=== PATIENT | female | born 1990 | race Caucasian/White ===

== ENCOUNTER → 2019-12-09 11:48 | Outpatient (CLI) | payer BC, SELFPAY ==
[2019-12-09 12:43] LABS: Basophils % 0.1 % (0.1-2.0); Eosinophils # 0.1 K/mm3 (0.0-0.4); Eosinophils % 1.2 % (0.1-12.0); Hematocrit 37.9 % (37.0-47.0); Hemoglobin 13.4 g/dL (12.2-16.2); Lymphocytes # 2.4 K/mm3 (0.7-4.5); Lymphocytes % 19.8 % (10-50); Mean Corpuscular HGB Conc 35.5 g/dL (31.8-35.4); Mean Corpuscular Volume 87.4 fl (81-99); Mean Platelet Volume 7.3 fl (7.4-10.4); Monocytes # 0.5 K/mm3 (0.1-1.0); Monocytes % 4.1 % (1.7-9.3); Neutrophils # 8.9 K/mm3 (1.8-7.8); Neutrophils % 74.7 % (37.0-80.0); Platelet Count 257 K/mm3 (142-424); Red Blood Count 4.33 M/mm3 (4.20-5.40); Red Cell Distribution Width 13.1 % (11.5-17.5); White Blood Count 11.8 K/mm3 (4.8-10.8)
[2019-12-09 13:50] LABS: Coronavirus 19 IgG Antibody Negative (Negative); Coronavirus 19 IgM Antibody Negative (Negative)
== END ==
PROVIDERS: PCP Family Medicine; Visit Provider Family Medicine
DX: Z01.84 Encounter for antibody response examination (principal); J06.9 Acute upper respiratory infection, unspecified
CPT/HCPCS: 36415; 85025; 86328

== ENCOUNTER 2020-09-17 02:35 | Emergency (ER) | payer BC, SELFPAY ==
[2020-09-17 02:37] VITALS: BP 135/95; PULSE 102; RESP 20; TEMP 36.8; O2SAT 98; BMI 27.4
[2020-09-17 03:03] VITALS: BMI 27.4
[2020-09-17 03:22] LABS: Basophils # 0.1 K/mm3 (0-0.2); Basophils % 0.5 % (0.1-2.0); Eosinophils # 0.1 K/mm3 (0.0-0.4); Eosinophils % 0.6 % (0.1-12.0); Hematocrit 43.7 % (37.0-47.0); Hemoglobin 14.2 g/dL (12.2-16.2); Lymphocytes # 3.4 K/mm3 (0.7-4.5); Lymphocytes % 34.6 % (10-50); Mean Corpuscular HGB Conc 32.4 g/dL (31.8-35.4); Mean Corpuscular Hemoglobin 27.7 pg (27.0-31.2); Mean Corpuscular Volume 85.5 fl (81-99); Mean Platelet Volume 7.5 fl (7.4-10.4); Monocytes # 0.7 K/mm3 (0.1-1.0); Monocytes % 6.8 % (1.7-9.3); Neutrophils # 5.7 K/mm3 (1.8-7.8); Neutrophils % 57.4 % (37.0-80.0); Platelet Count 307 K/mm3 (142-424); Red Blood Count 5.11 M/mm3 (4.20-5.40); Red Cell Distribution Width 14.2 % (11.5-17.5); White Blood Count 9.9 K/mm3 (4.8-10.8)
[2020-09-17 03:28] LABS: Alanine Aminotransferase 69 U/L (12-78); Albumin Level 4.8 g/dl (3.5-5.0); Albumin/Globulin Ratio 1.4 (1.1-1.8); Alkaline Phosphatase 125 U/L (38-126); Anion Gap 12.8 mEq/L (5-15); Aspartate Amino Transferase 56 U/L (14-36); Bilirubin,Total 0.2 mg/dl (0.2-1.3); Blood Urea Nitrogen 12 mg/dl (7-17); Calcium 10.1 mg/dl (8.4-10.2); Carbon Dioxide 26 mmol/L (22.0-30.0); Chloride 103 mmol/L (98-107); Creatinine Clearance Estimated 139 mL/min (50-200); Estimated Glomerular Filt Rate 98 ml/min (>60); GFR (African American) 119 ML/MIN (>60); Globulin 3.5 g/dL (1.3-3.2); Glucose 107 mg/dl (74-100); Potassium 3.8 mmoL/L (3.5-5.1); Sodium 138 mmol/L (136-145); Total Protein,Serum 8.3 g/dl (6.3-8.2)
[2020-09-17 03:33] LABS: C-Reactive Protein 7.9 mg/L (0-4)
[2020-09-17 03:44] LABS: Procalcitonin 0.044 ng/mL (0.0-2.0)
[2020-09-17 04:05] LABS: Erythrocyte Sedimentation Rate 22 mm/hr (0-20)
--- NOTE | 2020-09-17 04:51 | HMH.EDGENADL ---
ED Disposition Clinical Impression: Mastitis in female Disposition: Home, Self-Care Condition on Discharge: Good Instructions: DI for Mastitis Additional Instructions: use meds and continue and call pcp for follow up Prescriptions: cephALEXin [cephALEXin 500mg capsule*] 500 mg PO TID #30 cap Prescription Printed Referrals: Matuesz Fletcher MD [Primary Care Provider] - - Critical Care Critical Care Time: No Attestation: On 09/17/20, the high probability of a clinically significant, sudden or life threatening deterioration of the following system(s) required my full and direct attention, intervention and personal management. The time I documented below is in addition to time spent performing reported procedures but includes the following listed in this critical care notation. Medical Decision Making - Medical Records Medical records reviewed: Yes: I reviewed the patient's medical records. - Cristhian Inquiry Pt receiving controlled substance: No Vital Signs: 09/17/20 02:37 Temperature 98.3 F Temperature Source Oral Pulse Rate [Right Brachial] 102 H Respiratory Rate 20 Blood Pressure [Right ARM] 135/95 H Blood Pressure Mean [Right ARM] 108 Blood Pressure Source [Right ARM] Automatic Cuff 02 Sat by Pulse Oximetry 98 Oxygen Delivery Method Room Air - Lab Data Lab results reviewed: Yes: I reviewed the patient's lab results. Lab Results 09/17/20 03:00: WBC 9.9, RBC 5.11, Hgb 14.2, Hct 43.7, MCV 85.5, MCH 27.7, MCHC 32.4, RDW 14.2, Plt Count 307, MPV 7.5, Neut % (Auto) 57.4, Lymph % (Auto) 34.6, [place] % (Auto) 6.8, Eos % (Auto) 0.6, Baso % (Auto) 0.5, Neut # (Auto) 5.7, Lymph # (Auto) 3.4, [place] # (Auto) 0.7, Eos # (Auto) 0.1, Baso # (Auto) 0.1, ESR 22 H 09/17/20 03:00: Sodium 138, Potassium 3.8, Chloride 103, Carbon Dioxide 26, Anion Gap 12.8, BUN 12, Creatinine 0.70, Estimated Creat Clear 139, Estimated GFR 98, Est GFR ( Amer) 119, Glucose 107 H, Calcium 10.1, Total Bilirubin 0.2, AST 56 H, ALT 69, Alkaline Phosphatase 125, C-Reactive Protein 7.9 H, Total Protein 8.3 H, Albumin 4.8, Globulin 3.5 H, Albumin/Globulin Ratio 1.4, Procalcitonin 0.044 Result diagrams: 09/17/20 03:00 09/17/20 03:00 Medical Decision Narrative: will encourage continued breast pumping and use abx General Adult HPI - General Chief complaint: PAIN Stated complaint: Bilateral Breast Pain, Hot and hurts to touch Time Seen by Provider: 09/17/20 03:00 Mode of Arrival: Ambulatory Source of Information: Patient, Medical Record Limitations: No Limitations Description of Symptoms (Recalled from ER Triage Doc. by RN): Pt is 4months and c/o chills, fever, body aches, and has painful breasts. Pt reports she believes she had mastitis before and this is what it feels like now. Pt states she works at [employer] and is unable to take more than a 10 min break to pump. Pt took Tylenol 1gram about 1 hr ago (0130) d/t pain and temp of 100.1 at work. - History of Present Illness HPI narrative: chills and fever with bilat breast tenderness with hx of breast feeding - Onset (ago): day(s) Severity: moderate Associated symptoms: fever/chills Treatments prior to arrival: none - Related Data Previous Rx's Medication Instructions Recorded cephALEXin [cephALEXin 500mg 500 mg PO TID #30 cap 09/17/20 capsule*] Allergies Allergy/AdvReac Type Severity Reaction Status Date / Time No Known Allergies Allergy Verified 11/05/18 21:10 [facility] History - Hepatitis A Screen Drug use history?: No High risk sexual behaviors?: No History of sexually transmitted infection?: No Currently employed?: No Childcare worker?: No Do you have indoor plumbing?: Yes Do you have electricity?: Yes Attestation statement:: This patient has been screened for Hepatitis A risk factors. I have reviewed the patient's past medical history: Yes Medical History: Denies:: Cancer, Diabetes Mellitus Type 1, Diabetes Mellitus Type 2,
[2020-09-17 05:52] VITALS: BP 130/89; PULSE 99; RESP 16; TEMP 36.6; O2SAT 99
[2020-09-17 06:13] VITALS: BP 130/89; PULSE 99; RESP 20; O2SAT 99
== END 2020-09-17 05:55 | disposition home or self-care (01) ==
PROVIDERS: Emergency Provider Emergency Medicine; PCP Family Medicine
DX: N61.0 Mastitis without abscess (principal)
CPT/HCPCS: 80053; 84145; 85025; 85651; 86140; 99282

== ENCOUNTER 2020-10-04 15:24 | Emergency (ER) | payer BC, SELFPAY ==
[2020-10-04 15:34] VITALS: BP 147/98; PULSE 127; RESP 20; TEMP 36.6; O2SAT 96; BMI 27.4
--- NOTE | 2020-10-04 15:49 | HMH.EDUTC ---
[facility] [place] Disposition Clinical Impression: Viral syndrome, Exposure to COVID-19 virus Disposition: Home, Self-Care Condition on Discharge: Good Instructions: Preventing the Spread of Coronavirus Discharge Instructions Additional Instructions: Drink plenty of fluids. Take tylenol for pain or fever. Return if you begin to have difficulty breathing. Follow up with your regular doctor. GO TO THE ER FOR ANY WORSENING SYMPTOMS Referrals: Karine Luna PA [Primary Care Provider] - Forms: Work/School Release Time of Disposition: 15:51 Medical Decision Making - Medical Records Medical records reviewed: No: I reviewed the patient's medical records. - Cristhian Inquiry Pt receiving controlled substance: No Vital Signs: 10/04/20 15:34 10/04/20 16:02 Temperature 97.9 F 98 F Temperature Source Tympanic Pulse Rate 68 Pulse Rate [Right] 127 H Respiratory Rate 20 18 Blood Pressure 139/87 Blood Pressure [Right Arm] 147/98 H Blood Pressure Mean [Right Arm] 114 Blood Pressure Source [Right Arm] Automatic Cuff Blood Pressure Position [Right Arm] Sitting 02 Sat by Pulse Oximetry 96 [facility] [place] HPI - General Stated complaint: covid test Time Seen by Provider: 10/04/20 15:49 Mode of Arrival: Ambulatory Source of Information: Patient Limitations: No Limitations Description of Symptoms (Recalled from Triage Doc. by RN): pt c/o congestion, cough and fever. pt was exposed last wed to covid positive pt. HEENT Symptoms (Recalled from RN notes): Yes (sinus congestion) Resp Symptoms (Recalled from RN notes): Yes (cough) Skin Symptoms (Recalled from RN notes): No MS Symptoms (Recalled from RN notes): No Functional Status (Recalled from RN notes): na - History of Present Illness Provider Complaint: She states that for the past 2 days she has had chest congestion, sinus congestion, cough and low grade fever. She was exposed to covid-19 last week. She needs a covid test for her job before she can work. - Related Data Previous Rx's Medication Instructions Recorded cephALEXin [cephALEXin 500mg 500 mg PO TID #30 cap 09/17/20 capsule*] Allergies Allergy/AdvReac Type Severity Reaction Status Date / Time No Known Allergies Allergy Verified 11/05/18 21:10 - Worker's Comp Is this a Worker's Comp case?: No [facility] History - Hepatitis A Screen Drug use history?: No High risk sexual behaviors?: No History of sexually transmitted infection?: No Currently employed?: No Childcare worker?: No Do you have indoor plumbing?: Yes Do you have electricity?: Yes Attestation statement:: This patient has been screened for Hepatitis A risk factors. I have reviewed the patient's past medical history: Yes Medical History: Denies:: Cancer, Diabetes Mellitus Type 1, Diabetes Mellitus Type 2, MRSA Comment: small hole in heart Laterality Cases: Bilateral: Tonsillectomy Amputation: No - Social History Smoking Status: Unknown if ever smoked Alcohol Intake: never Occupational Status: employed Housing: house Family Hx:: Asthma, Heart Attack, Diabetes ROS Obtained: Yes All systems reviewed & no additional complaints - Constitutional Constitutional: Reports system reviewed and no additional complaints, except as docu - Eyes Eyes: Reports system reviewed and no additional complaints, except as docu - ENT Ears, Nose, Mouth, and Throat: Reports system reviewed and no additional complaints, except as docu - Cardiovascular Cardiovascular: Reports system reviewed and no additional complaints, except as docu - Respiratory Respiratory: Reports system reviewed and no additional complaints, except as docu - Gastrointestinal Gastrointestingal: Reports: system reviewed and no additional complaints, except as docu Physical Exam - General General appearance: alert, in no apparent distress - Head Head exam: atraumatic, normocephalic, normal inspection - Eye Eye exam: Present: normal appearance, PERRL, EOMI
[2020-10-04 16:02] VITALS: BP 139/87; PULSE 68; RESP 18; TEMP 36.6
== END 2020-10-04 16:03 | disposition home or self-care (01) ==
PROVIDERS: Emergency Provider Nurse Practitioner Family; PCP Physician Assistant
DX: Z20.822 Contact with and (suspected) exposure to COVID-19 (principal); B34.9 Viral infection, unspecified
CPT/HCPCS: 99202; G0463; U0003

== ENCOUNTER → 2020-11-03 11:53 | Outpatient (CLI) | payer BC, SELFPAY ==
[2020-11-03 13:11] LABS: Basophils % 0.5 % (0.1-2.0); Eosinophils # 0.2 K/mm3 (0.0-0.4); Eosinophils % 1.5 % (0.1-12.0); Hematocrit 44.1 % (37.0-47.0); Hemoglobin 14.9 g/dL (12.2-16.2); Lymphocytes # 2.5 K/mm3 (0.7-4.5); Mean Corpuscular HGB Conc 33.8 g/dL (31.8-35.4); Mean Corpuscular Hemoglobin 28.9 pg (27.0-31.2); Mean Corpuscular Volume 85.6 fl (81-99); Mean Platelet Volume 7.7 fl (7.4-10.4); Monocytes # 0.6 K/mm3 (0.1-1.0); Monocytes % 6.5 % (1.7-9.3); Neutrophils # 6.6 K/mm3 (1.8-7.8); Neutrophils % 66.6 % (37.0-80.0); Platelet Count 300 K/mm3 (142-424); Red Blood Count 5.16 M/mm3 (4.20-5.40); Red Cell Distribution Width 13.3 % (11.5-17.5); White Blood Count 9.9 K/mm3 (4.8-10.8)
== END ==
PROVIDERS: PCP Physician Assistant; Visit Provider Physician Assistant
DX: Z20.822 Contact with and (suspected) exposure to COVID-19 (principal)
CPT/HCPCS: 36415; 85025; U0003

== ENCOUNTER → 2021-09-07 11:48 | Outpatient (CLI) | payer OTHER, SELFPAY | PROVIDERS: PCP Physician Assistant; Visit Provider Physician Assistant | DX: R00.0 Tachycardia, unspecified (principal) | CPT/HCPCS: 93225; 93226 ==

== ENCOUNTER → 2021-09-14 11:08 | Outpatient (CLI) | payer OTHER, SELFPAY ==
--- NOTE | 2021-09-14 11:22 | XR_ITS ---
FINAL REPORT CLINICAL HISTORY: COVID TESTING, rapid heart rate, elevated BP FINDINGS: A single portable view of the chest was obtained. The heart size and pulmonary vascularity are within normal limits. The mediastinum is within normal limits. No acute pulmonary abnormality is identified. The bony thorax is intact. IMPRESSION: No active cardiopulmonary disease. Reviewed, Interpreted and Dictated by Hardy Kim III, MD Transcribed by Cameron Castrejon Authenticated by Hardy Kim III, MD on 09/14/2021 12:23:55 PM [facility]
--- NOTE | 2021-09-14 11:29 | ECG_ITS ---
APPROVED REPORT Exam: Resting ECG HR:90 bpm ECG Measurements Heart Rate 90 AXES MI 165 P 62 QRSd 87 QRS 82 QT 367 T 48 QTc 415 Conclusion SINUS RHYTHM WITH SINUS ARRHYTHMIA NORMAL ECG UNCONFIRMED REPORT Electronically signed by : Barrera Nielsen MD 09/14/2021 18:02:14
[2021-09-14 11:32] LABS: Adenovirus,PCR Not Detected (NotDetected); Bordetella Pertussis Not Detected (NotDetected); Chlamydophila Pneumoniae, PCR Not Detected (NotDetected); Coronavirus 229E Not Detected (NotDetected); Coronavirus NL63 Not Detected (NotDetected); Coronavirus OC43 Not Detected (NotDetected); Coronovirus HKU1,PCR Not Detected (NotDetected); Human Metapneumovirus Not Detected (NotDetected); Influenza A, PCR Not Detected (NotDetected); Influenza AH1, 2009 Not Detected (NotDetected); Influenza AH1, PCR Not Detected (NotDetected); Influenza AH3,PCR Not Detected (NotDetected); Influenza B, PCR Not Detected (NotDetected); Mycoplasma Pneumoniae, PCR Not Detected (NotDetected); Parainfluenza 1, PCR Not Detected (NotDetected); Parainfluenza 2, PCR Not Detected (NotDetected); Parainfluenza 3, PCR Not Detected (NotDetected); Parainfluenza 4, PCR Not Detected (NotDetected); Respiratory Syncytial Virus Not Detected (NotDetected); Rhinovirus/Enterovirus Not Detected (NotDetected)
[2021-09-14 12:28] LABS: Alanine Aminotransferase 53 U/L (12-78); Albumin Level 4.3 g/dl (3.5-5.0); Albumin/Globulin Ratio 1.6 (1.1-1.8); Alkaline Phosphatase 81 U/L (38-126); Anion Gap 10.8 mEq/L (5-15); Aspartate Amino Transferase 51 U/L (14-36); Bilirubin,Total 0.4 mg/dl (0.2-1.3); Blood Urea Nitrogen 10 mg/dl (7-17); Calcium 8.8 mg/dl (8.4-10.2); Carbon Dioxide 27 mmol/L (22.0-30.0); Chloride 105 mmol/L (98-107); Creatine Kinase 67 U/L (30-135); Estimated Glomerular Filt Rate 117 ml/min (>60); GFR (African American) 141 ML/MIN (>60); Globulin 2.7 g/dL (1.3-3.2); Glucose 132 mg/dl (74-100); Potassium 3.8 mmoL/L (3.5-5.1); Sodium 139 mmol/L (136-145)
[2021-09-14 12:39] LABS: CKMB Relative Index 0.9 U/L (0-4.0); Creatine Kinase MB 0.6 ng/ml (0.0-2.03)
[2021-09-14 12:42] LABS: Troponin I < 0.01 ng/ml (0.00-0.034)
[2021-09-14 12:49] LABS: Basophils # 0.1 K/mm3 (0-0.2); Basophils % 1.2 % (0.1-2.0); Eosinophils # 0.1 K/mm3 (0.0-0.4); Eosinophils % 0.9 % (0.1-12.0); Hemoglobin 15.1 g/dL (12.2-16.2); Lymphocytes # 2.1 K/mm3 (0.7-4.5); Lymphocytes % 37.8 % (10-50); Mean Corpuscular HGB Conc 32.1 g/dL (31.8-35.4); Mean Corpuscular Hemoglobin 28.6 pg (27.0-31.2); Mean Corpuscular Volume 89.1 fl (81-99); Mean Platelet Volume 8.6 fl (7.4-10.4); Monocytes # 0.6 K/mm3 (0.1-1.0); Monocytes % 10.8 % (1.7-9.3); Neutrophils # 2.7 K/mm3 (1.8-7.8); Neutrophils % 49.4 % (37.0-80.0); Platelet Count 324 K/mm3 (142-424); Red Blood Count 5.27 M/mm3 (4.20-5.40); Red Cell Distribution Width 13.3 % (11.5-17.5); White Blood Count 5.5 K/mm3 (4.8-10.8)
[2021-09-15 00:14] LABS: Coronavirus 19, PCR Detected (NotDetected)
== END ==
PROVIDERS: PCP Physician Assistant; Visit Provider Physician Assistant
DX: U07.1 COVID-19 (principal)
CPT/HCPCS: 36415; 71045; 80053; 82550; 82553; 84484; 85025; 87581; 87632; 87798; 93005; C9803; U0003; U0005

== ENCOUNTER → 2021-09-22 08:02 | Outpatient (CLI) | payer OTHER, SELFPAY ==
--- NOTE | 2021-09-22 08:10 | CA_ITS ---
APPROVED REPORT EXAM: Comprehensive 2D, Doppler, and color-flow Echocardiogram Email Marketing Executive: Gail Ashford CRT Ht: 5 ft 5 in Wt: 185lbs BSA: 1.91 BP: 138/87 mmHg Indications: Chest Pain, Shortness of Breath, Diabetes, Palpitations, Hyperlipidemia, Hypertension/HDD Pt states small hole in her heart per old Echo 2013 B/S Echo Enhancing Agent Indication: Rule Out Septal Defect Agent(s) / Amount(s) Used: Agitated Saline 5 cc Comments: B/S appears positive for shunt. 2D Dimensions LVOT 1.86 cm (M/F) 1.5-2.5 LA Volume 20.60 mL LA Volume Index 10.80 mL/m2 (M/F) 16-34 M-Mode Dimensions RVDd 2.75 cm (0.9-2.6) LA Diam 2.69 cm (1.9-4.0) LVDd 4.13 cm (3.5-5.7) Ao Diam 3.40 cm (2.0-3.7) LVDs 2.53 cm (3.5-5.7) IVSd 1.22 cm (0.6-1.1) PWd 0.78 cm (0.6-1.1) EF (Teich) 69.50% FS 38.70% EDV (Teich) 75.50 mL TAPSE 1.90 (<1.7) ESV (Teich) 23.00 mL LV Diastology E Decel Time 140.00 (160-240 msec) E/A Ratio 1.17 MED E' 7.70 (< 7 cm/sec) MED A' 10.70 cm/s E'/MED E' Ratio 8.74 (>14) LAT E' 8.00 (<10 cm/sec) LAT A' 6.20 cm/s E/LAT E' Ratio 8.41 (>14) Aortic Valve AO Peak GR. 5.90 mmHg Mitral Valve MV A Velocity 57.00 (40-130 cm/s) E/A Ratio 1.17 MV Decel. Time 140.00 (160-240 ms) Pulmonary Valve PV Peak Velocity 86.00 (50-150 cm/s) Tricuspid Valve TR P. Velocity 191.00 cm/s RAP Estimate 10.00 mmHg RVSP 24.50 mmHg Left Ventricle Left atrium normal size, left ventricle is normal size, there is no concentric left ventricular hypertrophy, visually estimated ejection fraction 55% with no regional wall motion abnormality, diastolic parameters are within normal range. Right Ventricle Right atrium and right ventricle are normal size and contractility. Atria Intra-atrial septum is intact, agitated saline contrast study identifies likely small patent foramen ovale. Aortic Valve Aortic valve is grossly normal, there is no aortic stenosis or aortic insufficiency. Mitral Valve Mitral valve grossly normal, there is trace mitral regurgitation. Tricuspid Valve Tricuspid grossly normal, there is trace tricuspid regurgitation, tricuspid regurgitation jet velocity is inadequate for calculation of the right ventricular systolic pressure. Pulmonic Valve Pulmonic valve is poorly visualized. Great Vessels Aortic root is normal size. Inferior vena cava is poorly visualized. Pericardium No significant pericardial effusion noted. Conclusion 1. Normal left ventricular size, preserved left ventricular systolic function, visually estimated ejection fraction 55% with no regional wall motion abnormality, diastolic parameters are within normal range in the study. 2. Likely small patent foramen ovale with [id number] shunt. 3. Trace mitral and tricuspid regurgitation. 4. No significant pericardial effusion. 5. Inferior vena cava is poorly visualized. Electronically signed by : Arun Franco MD 09/23/2021 14:07:35
== END ==
PROVIDERS: PCP Physician Assistant; Visit Provider Physician Assistant
DX: R00.0 Tachycardia, unspecified (principal); I10 Essential (primary) hypertension
CPT/HCPCS: 93306

== ENCOUNTER 2025-06-23 15:39 | Outpatient (CLI) | payer OTHER, SELFPAY ==
--- OUTSIDE RECORDS SUMMARY | 2025-06-23 15:42 | XMS_ITS | Encounter Summary ---
[facility] Address [address] [place] [address] Care Team Providers Care Strand Buncher Fine Wire Name Role Phone Mateusz Fletcher MD Primary Care Provider + [phone] Reason for Visit * Reason Onset Date Comments Appointment 06/10/2025 Encounter Details Date Type Department Care Team (Late st Contact Info) Description 06/10/2025 Telephone [facility] [address] [phone] Yadira Collins MD [address] [place] [address] Appointment Social History Tobacco Use Types Packs/Day Years Used Date Smoking Tobacco: Former Cigarettes Smokeless Tobacco: Never Comments:social Alcohol Use Standard Drinks/Week Comments Not Currently 0 (1 standard drink = 0.6 oz pur e alcohol) AUDIT-C Answer Date Recorded Q1: How often do you have a drink containing alc ohol? Never 05/09/2020 Average Number of Drinks Not on file 020 Frequency of Binge Drinking Not on file 01/2020 Overall Financial Resource Strain (CARDIA) Answe r Date Recorded How hard is it for you to pa y for the very basics like food, housing, medical care, and heating? Not hard at all 04/10/2020 Hunger Vital Sign Answer Date Recorded Within the past 12 months, y ou worried that your food would run out before you got the money to buy more. Never true 04/10/20 20 Within the past 12 months, t he food you bought just didn't last and you didn't have money to get more. Never true 04/10/2020 PRAPARE - Transportation Answer Date Re corded In the past 12 months, has l ack of transportation kept you from medical appointments or from getting medications? No 04/01 In the past 12 months, has l ack of transportation kept you from meetings, work, or from getting things needed for daily living? No 04/10/2020 [place] Depression Scale Answer Date Recorded [place] Depression Scale Total 3 06/15/2020 The thought of harming myself has occurred to me . 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 Will send a [employer] message and remove from phone list due to multiple attempts. * Telephone Encounter - Lindy Gonzalez RN - 06/10/2025 3:24 PM EST Attempted to call patient again; voice mail box has not been set up . * Telephone Encounter - Lindy Gonzalez RN - 06/10/2025 1:06 PM EST Called patient back. States she has been visiting family in [place] and saw an OB there twice with cramping and nausea. States by ultrasound done there, she will be 8 weeks on 06/12/25. Call dropped again. Tried to call patient back; unable to leave a message. * Telephone Encounter - Lindy Gonzalez RN - 06/10/2025 12:59 PM EST Patient of Dr. Collins; KASSANDRA 01/17/2024. Returned patient's call. LMP 04/10/25 = 8w 5d Signal was lost; tried to call patient back, no answer and no voicemail set up. * Telephone Encounter - Mayte Christy RegSched Rep - 06/10/2025 12:10 PM EST Provider: Yadira Collins MD Caller: Mary Preciado Mary Ilana Female, 34 y.o., 1990 CSN: [id number] Reason for Call: PT REQ A CALL BACK TO [facility] OB APPT UNABLE TO WT THE CALL TO PRACTICE , LMP 04-10-25 documented in this encounter Plan of Treatment Upcoming Encounters Date Type Department Care Team (Late st Contact Info) Description 06/26/2025 9:00 AM EST Ancillary Procedure [facility] [id number] [phone] 06/26/2025 9:30 AM EST Initial [facility] [address] [facility] [address] [place] [phone] Eliz Cazares APRN [address] [place] [phone] 10/08/2025 8:00 AM EDT Office Visit [facility] [address] [facility] [address] [place] [phone] Yadira Collins MD [address] [facility] [address] [place] [address] documented as of this encounter Visit Diagnoses Not on filedocumented in this encounter Care Teams Str[employer] Relationship Specialty Start Date End Date Mateusz Fletcher MD [address] [facility] [address] [facility] [address] [place] [address] PCP - General Family Medicine 12/27/19 documented as of this encounter
--- OUTSIDE RECORDS SUMMARY | 2025-06-23 15:42 | XMS_ITS | Clinical Summary ---
Author Organization [facility] Address [address] [place] [address] Care Team Providers Care Risk Management Analyst Name Role Phone Mateusz Fletcher MD Primary Care Provider + [phone] Allergies No known active allergies Medications omeprazole (priLOSEC) 20 MG capsule Take 1 capsule by mouth Daily. 06/15/2022 Active montelukast (SINGULAIR) 10 MG tablet Take 1 tablet by mouth Daily. 05/18/2022 Active sertraline (ZOLOFT) 100 MG tablet Take 1 tablet by mouth Daily. 04/03/2023 Active Mounjaro 10 MG/0.5ML solution pen-injector pen 01/04/2024 Active methocarbamol (ROBAXIN) 500 MG tablet Take 1 tablet by mouth 3 (Three) Times a Day As Needed. Active meloxicam (MOBIC) 15 MG tablet Daily. 12/17/2024 Active Active Problems Problem Noted Date Diagnosed Date Bilateral carpal tunnel syndrome 04/03/2024 YVES (stress urinary incontinence, female) 2023 Overview (01/17/2024): 01/17/2024-patient reporting daily stress urinary incontinence. Discussed avoidance of bladder irritants, timed voiding, pelvic floor physical therapy, Kegel exercises. Patient has grade 1 cystocele at worst. If symptoms not improved with traditional therapy, will refer to urogynecology. Abnormal Pap smear of cervix 06/15/2020 Overview (07/04/2023): 10/2019: LSIL HPV non 16/18+ 06/20 PP pap HSIL 06/30/20 colpo biopsies low grade and focal high grade 07/08/20 LEEP ROSANGELA 2-3 focal high grade. Margins clear 06/22-normal Pap with negative HPV. depression 06/15/2020 Overview (06/15/2020): Controlled on Zoloft. Vaginal delivery 05/08/2020 Shoulder dystocia during labor and delivery 12/2019 Fibroid uterus 03/24/2020 Overview (06/29/2022): 06/29/2022-Uterus within normal limits. Small posterior fibroid measuring 16 x 10 x 11 mm. Ovaries within normal limits. History of gestational diabetes 03/03/2020 Rh negative status during 03/03/2020 Overview (03/03/2020): Rhogam 03/03/20 Low T4 03/03/2020 Overview (03/24/2020): @25 weeks- recheck at 31 weeks was within normal limits Tachycardia 03/03/2020 Overview (03/03/2020): Following with cards. 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 Encounters Date Type Department Care Team Description 06/10/2025 Telephone [facility] [address] [place] [address] Tamanna Collins MD Appointment from Last 3 Months Immunizations Immunization Administration Dates Next Due Fluzone (or Fluarix & Flulaval for VFC) >6mos Hep B, Adolescent or Pediatric 04/03/2002,2001 MMR 10/02/2001 Rho (D) Immune Globulin 03/03/2020 Tdap 03/30/2020,10/18/2017 Family History Medical History Relation Name Comments Hyperlipidemia Father Heart attack Maternal Grandmother Thais Márquez Stroke Maternal Grandmother Thais Márquez Colon cancer Mother Tyrone maría Diabetes Mother Tyrone maría Hypertension Other FAMILY HX Lung cancer Other FAMILY HX Kidney failure Paternal Grandfather Breast cancer Neg Hx Ovarian cancer Neg Hx Uterine cancer Neg Hx Relation Name Status Comments Father Alive Maternal Grandmother Thais Márquez Mother Tyrone maría Alive Other FAMILY HX Paternal Grandfather Social History Tobacco Use Types Packs/Day Years Used Date Smoking Tobacco: Former Cigarettes Smokeless Tobacco: Never Tobacco Cessation:Counseling Given: Not Answered Comments:social Alcohol Use Standard Drinks/Week Comments Not [...] things needed for daily living? No 04/10/2020 [place] Depression Scale Answer Date Recorded [place] Depression Scale Total 3 06/15/2020 The thought of harming myself has occurred to me . Never 06/15/2020 Comments No Sex and Gender Information Value Date Recorded Sex Assigned at Female 05/04/2020 5:06 AM EST Legal Sex Female 1:01 PM EDT Gender Identity Female 05/04/2020 5:06 AM EST Sexual Orientation Straight 05/04/2020 5: 06 AM EST Occupation Industry Job Start Date Job End Date [employer] Not on file Not on file Not on file Last Filed Vital Signs Vital Sign Reading Time Taken Comments Blood Pressure 118/74 02/16/2025 9:54 AM EDT Pulse 86 05/10/2020 7:40 AM EST Temperature 36.7 C (98 F) 05/10/2020 7:40 AM EST Respiratory Rate 18 05/10/2020 7:40 AM EST Oxygen Saturation 99% 03/12/2020 10:25 AM EDT Inhaled Oxygen Concentration - - Weight 62.6 kg (138 lb) 02/16/2025 9:54 AM EDT Height 165.1 cm (5' 5 ) 02/16/2025 9:54 AM EDT Body Mass Index 22.96 02/16/2025 9:54 AM EDT Plan of Treatment Upcoming Encounters Date Type Department Care Team (Late st Contact Info) Description 06/26/2025 9:00 AM EST Ancillary Procedure [facility] [address] [facility] [address] [place] [phone] 06/26/2025 9:30 AM EST Initial [facility] [address] [facility] [address] [place] [address] Eliz Cazares, DOPE MAINTENANCE WORKER [address] [place] [address] 10/08/2025 8:00 AM EDT Office Visit [facility] [address] [facility] [address] [place] [phone] Tamanna Collins MD [address] [facility] [address] [place] [address] Health Maintenance Due Date Last Done Comments DIABETIC EYE EXAM 12/07/1999 DIABETIC FOOT EXAM 12/07/1999 URINE MICROALBUMIN-CREATININ E RATIO (uACR) 12/07/1999 Pneumococcal Vaccine 0-49 (1 of 2 - PCV) 2008 ANNUAL PHYSICAL 02/16/2020 HEPATITIS C SCREENING 02/16/2020 HEMOGLOBIN A1C 08/18/2020 02/16/2020 PAP SMEAR 01/02/2024 07/04/2023, 06/02, 06/15/2020, Additional history exists Annual Gynecologic Pelvic an d Breast Exam 07/05/2024 07/04/2023, 06/15/2020 INFLUENZA VACCINE 01/30/2025 03/30/2020 TDAP/TD VACCINES (3 - Td or Tdap) 03/30/2030 020, 10/18/2017 Hepatitis B Completed 04/03/2002, 10/02/2001 Procedures Procedure Name Priority Date/Time Associated Diagnosis Comments LIQUID-BASED PAP SMEAR WITH HPV GENOTYPING REGARDLESS OF INTERPRETATION, [facility] ([facility]) Routine 07/04/2023 10:43 AM EST History of abnormal cervical Pap smear SCANNED - PAP SMEAR 06/15/2020 POCT GLYCOSYLATED HEMOGLOBIN (HGB A1C) Routine 02/16/2020 2:49 PM EDT Insulin controlled gestational diabetes mellitus (GDM) in second trimester from Last 3 Months or Most Recently Relevant to Health Maintenance Results * LIQUID-BASED PAP SMEAR WITH HPV GENOTYPING REGARDLESS OF INTERPRETATION (JEFFERY[facility]COR,[facility]AD) (07/04/2023 10:43 AM EST) Reference Lab Report [facility] [address] [place] [address] or [phone] Bernardo Willis M.D., Script Supervisor PATIENT NAME LAB[facility]ATORY NO. [address] NING TYSON NGutierrez [id number] AGE SEX SSN CLIENT REF # [facility] 32 1990 F [id number] [id number] REQUESTING [place]. [place] [address] TAMANNA COLLINS DATE COLLECTED DATE RECEIVED DATE REPORTED 07/04/2023 07/04/2023 07/09/2023 ThinPrep Pap with Cytyc Imaging DIAGNOSIS: Negative for intraepithelial lesion or malignancy Multiple factors can influence accuracy of Pap tests; therefore, screening at regular intervals is necessary for early cancer detection. COMMENT: Benign cellular changes associated with inflammation are present. SPECIMEN ADEQUACY: SATISFACTORY FOR EVALUATION Transformation zone is present. SOURCE OF SPECIMEN: CERVICAL/ENDOCERVI LONG SLIDES: 1 CLINICAL HISTORY: History of abnormal cervical Pap smear, HGSIL, Women's annual routine gynecological exam HPV HR-HPV POOL: Negative The Aptima HPV assay is an in vitro nucleic acid amplification test for the qualitative detection of E6/E7 viral messenger RNA from 14 high risk types of HPV in cervical specimens. 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 ThinPrep Vial Collection / Unknown 07/04/2023 10:43 AM EST 07/04/2023 10:44 AM EST Tamanna Collins MD PATHOLOGY/CYTOLOGY ORDER HANSEL Final Result [facility]
[address] [place] [address], [place] [phone] * SCANNED - PAP SMEAR (06/15/2020) Tamanna Collins MD CHART REVIEW TABS Fin al Result * POC Glycosylated Hemoglobin (Hb A1C) (02/16/2020 2:49 PM EDT) Hemoglobin A1C 5.9 % [facility] Lot Number [id number] [facility] Expiration Date 08/25/21 [facility] Blood 02/16/2020 2:49 PM EDT Flor Hdz PA-C POINT OF CARE TEST ORDERAB LES Final Result [facility]
[address] [place] [address], from Last 3 Months or Most Recently Relevant to Health Maintenance Insurance Advance Directives * CPR (Attempt to Resuscitate) (Latest Code Status on File) Date Activated Date Inactivated Comments 05/08/2020 10:54 PM 05/10/2020 3:32 PM Question Answer Comments Code Status (Patient has no pulse and is not breathing): CPR (Attempt to Resuscitate) Medical Interventions (Patie nt has pulse or is breathing): Full * CPR (Attempt to Resuscitate) Date Activated Date Inactivated Comments 05/07/2020 9:10 PM 05/08/2020 10:54 PM Question Answer Comments Code Status (Patient has no pulse and is not breathing): CPR (Attempt to Resuscitate) Medical Interventions (Patie nt has pulse or is breathing): Full Care Teams Risk Management Analyst Relationship Specialty Start Date End Date Matesuz Fletcher MD [address] [facility] [address] [facility] [address] [place] [address] PCP - General Family Medicine 12/27/19
[2025-06-23 16:06] LABS: Hematocrit 40.5 % (37.0-47.0); Hemoglobin 14.0 g/dL (12.2-16.2); Immature Granulocytes % 0.4 %; Mean Corpuscular HGB Conc 34.6 g/dL (31.8-35.4); Mean Corpuscular Hemoglobin 30.4 pg (27.0-31.2); Mean Corpuscular Volume 88.0 fl (81-99); Nucleated Red Blood Cells % 0 %; Platelet Count 310 K/mm3 (142-424); Red Blood Count 4.60 M/mm3 (4.20-5.40); Red Cell Distribution Width-SD 40.1 fL; White Blood Count 11.2 K/mm3 (4.8-10.8)
[2025-06-23 16:12] LABS: Hemoglobin A1C 5.8 % (4.0-6.0)
[2025-06-23 16:45] LABS: RPR W/RFX Titers Nonreactive (Nonreactive)
[2025-06-23 17:07] LABS: Hepatitis C Ab Qual. W/ RFX NEGATIVE (Negative)
[2025-06-24 08:14] LABS: Hepatitis B Surface Antigen Negative (Negative)
[2025-06-24 10:12] LABS: Rubella Antibodies, IgG 10.40 index (Immune >0.99)
== END 2025-06-23 23:59 | disposition home or self-care (01) ==
LOC: LAB 15:40
PROVIDERS: PCP Physician Assistant; Visit Provider Obstetrics & Gynecology
DX: Z34.91 Encounter for supervision of normal pregnancy, unspecified, first trimester (principal)
CPT/HCPCS: 36415; 83036; 85025; 86592; 86762; 86787; 86803; 86850; 87340; 87389